=== PATIENT | male | born 1960 ===

== ENCOUNTER 2017-08-13 10:08 | Day surgery (SDC) | payer BC ==
[2013-04-08 09:26] VITALS: BMI 25.9
[2017-08-13 10:39] LABS: BASO # 0.03 K/mm3 (0.0-2.0); BASO % 0.5 % (0.0-3.0); EOS # 0.2 (0.0-0.7); EOS % 3.5 % (1.5-5.0); GRAN # 2.13 (1.4-6.5); GRAN % 38.8 % (50.0-68.0); LYMPH # 2.5 (1.2-3.4); LYMPH % 45.9 % (22.0-35.0); MEAN CELL VOLUME 91.4 fl (80.0-105.0); MEAN CORPUSCULAR HEMOGLOBIN 30.9 pg (25.0-35.0); MEAN CORPUSCULAR HGB CONC 33.8 g/dl (31.0-37.0); MONO # 0.6 (0.1-0.6); MONO % 11.3 % (1.0-6.0); RED CELL DISTRIBUTION WIDTH 13.7 % (11.5-14.5); WHITE BLOOD COUNT 5.5 10^3/ul (4.5-11.0)
[2017-08-13 10:47] LABS: BLOOD UREA NITROGEN 13 mg/dL (7-21); CALCIUM 9.3 mg/dL (8.4-10.5); CARBON DIOXIDE 28 mmol/L (21-33); CHLORIDE 107 mmol/L (98-107); GFR AFRICAN-AMERICAN > 60; GLUCOSE,RANDOM 122 mg/dL (70-110); POTASSIUM 4.2 mmol/L (3.6-5.0); SODIUM 142 mmol/L (132-148)
[2017-08-13 10:59] LABS: INR 1.04 (0.93-1.08); PARTIAL THROMBOPLASTIN TIME 28.7 Seconds (25.1-36.5)
[2017-08-13] MEDS ORDERED: Midazolam 2 MG/2 ML VIAL ONE (11:28)
[2017-08-13] MEDS ORDERED: Oxycodone/Acetaminophen 5/325 mg Tab PO PRN (16:05)
[2017-08-13] MEDS ORDERED: Sodium Chloride 0.45% 1,000 ML IV SCH (16:15)
[2017-08-13 16:22] VITALS: RESP 16
[2017-08-13] MEDS ORDERED: Oxycodone/Acetaminophen 5/325 mg Tab ONE (16:59)
[2017-08-13 17:02] VITALS: TEMP 97.7; O2SAT 98
[2017-08-13 17:35] VITALS: BP 158/92; PULSE 55
--- NOTE | 2017-08-13 19:46 | CT ---
PROCEDURE: CT guided liver biopsy. HISTORY: MAICO Duran biopsy PHYSICIAN(S): Kavon Gabriel MD. TECHNIQUE: The relative risks and indications of the procedure were explained to the patient and consent obtained. The patient was placed supine on the CT scanner and preliminary images through the liver obtained. Conscious sedation and monitoring were provided throughout the procedure by a nurse. The visualized portions of the liver are normal on the non contrast images. A subxyphoid approach was selected and the area prepped and draped in the usual sterile fashion. 1% Xylocaine was used to anesthetize the skin and soft tissues. A 17-gauge guiding needle was advanced into the lateral segment of the left lobe of the liver. Its position was confirmed with CT. Using coaxial technique, multiple core biopsies were obtained. The postprocedure images show no evidence of significant hemorrhage. IMPRESSION: 1. CT-guided liver biopsy as described above.
== END 2017-08-13 18:09 | disposition home or self-care (01) ==
LOC: SDS 10:08
PROVIDERS: ATTEND Radiology Vascular & Interventional Radiology
DX: B18.2 Chronic viral hepatitis C (principal); K76.0 Fatty (change of) liver, not elsewhere classified; I10 Essential (primary) hypertension